=== PATIENT | male | born 1985 | race American Indian/Alaskan Native ===

== ENCOUNTER 2021-12-26 08:10 | Emergency (ER) | payer SELFPAY ==
[2021-12-26 08:24] VITALS: BP 164/99
== END 2021-12-26 11:24 | disposition left against medical advice (07) ==
LOC: ED 08:10
DX: K08.89 Other specified disorders of teeth and supporting structures (principal); Z53.21 Procedure and treatment not carried out due to patient leaving prior to being seen by health care provider